=== PATIENT | male | born 1955 | race Caucasian/White ===

== ENCOUNTER 2016-08-25 00:53 | Emergency (ER) | payer OTHER ==
[~2016-08-25] VITALS: Ht 188 cm; Wt 100.0 kg
[2016-08-25 01:06] VITALS: BP 150/85
[2016-08-25 02:28] LABS: BASOPHILS % (AUTO) 0.6 % (0.0-2.0); EOSINOPHILS % (AUTO) 2.2 % (1.0-6.0); HEMATOCRIT 36.1 % (41-53); LYMPHOCYTES % (AUTO) 24.5 % (22.0-44.0); MEAN CORPUSCULAR HGB CONC 33.1 G/dL (31.0-37.0); MEAN CORPUSCULAR VOLUME 91 fL (80-100); MONOCYTES # (AUTO) 0.7 K/uL (0.1-1.0); MONOCYTES % (AUTO) 16.8 % (2.0-9.0); NEUTROPHILS # (AUTO) 2.2 K/uL (1.8-7.7); NEUTROPHILS % (AUTO) 55.9 % (40.0-70.0); PLATELET COUNT (AUTO) 102 K/uL (150-450); RED BLOOD CELL COUNT(AUTO) 3.99 MIL/uL (4.50-5.90); RED CELL DISTRIBUTION WIDTH 14.4 % (11.5-14.5)
[2016-08-25] MEDS ORDERED: FUROSEMIDE 20 MG TABLET PO ONE (02:30)
[2016-08-25 02:32] LABS: GLUCOSE,POINT OF CARE 114 MG/DL (70-110)
[2016-08-25 02:33] LABS: ANION GAP 8 mmol/L (8-16); CALCIUM, TOTAL 8.5 mg/dL (8.8-10.5); CARBON DIOXIDE 27 mmol/L (22-29); CHLORIDE 107 mmol/L (98-107); CREATININE 0.77 mg/dL (0.60-1.30); GLOMERULAR FILTR. RATE CALC > 60 mL/min (>60); POTASSIUM 3.7 mmol/L (3.5-5.1); SODIUM SERUM 142 mmol/L (136-145); UREA NITROGEN, BLOOD 16 mg/dL (7-18)
[2016-08-25] MEDS ORDERED: LABE100T PO (02:35)
[2016-08-25] MEDS ORDERED: FURO20 PO (02:35)
[2016-08-25] MEDS ORDERED: LORA10TA7 PO (02:35)
[2016-08-25] MEDS ORDERED: MORP15 PO (02:35)
[2016-08-25] MEDS ORDERED: OMEP20 PO (02:35)
[2016-08-25] MEDS ORDERED: NAPH10DR OU (02:35)
[2016-08-25] MEDS ORDERED: HYDR50 PO (02:35)
[2016-08-25] MEDS ORDERED: LEVE500T53 PO (02:35)
[2016-08-25] MEDS ORDERED: SALS500T16 PO (02:35)
[2016-08-25] MEDS ORDERED: ASPI81 PO (02:35)
[2016-08-25] MEDS ORDERED: AMLO-512 PO (02:35)
[2016-08-25] MEDS ORDERED: ENAL20 PO (02:35)
[2016-08-25] MEDS ORDERED: PREG75 PO (02:35)
[2016-08-25] MEDS ORDERED: METF500T4 PO (02:35)
[2016-08-25] MEDS ORDERED: LACT30L PO (02:35)
[2016-08-25] MEDS ORDERED: DSS100 PO (02:35)
[2016-08-25 02:40] LABS: ALANINE AMINOTRANSFERASE 71 U/L (12-78); ALBUMIN 3.3 g/dL (3.4-5.0); ASPARTATE AMINOTRANSFERASE 76 U/L (15-37); BILIRUBIN,TOTAL 0.5 mg/dL (0.1-1.0); TOTAL PROTEIN, SERUM 6.4 g/dL (6.4-8.2)
[2016-08-25 02:43] LABS: B-TYPE NATRIURETIC PEPTIDE 11 pg/mL (0-100)
== END 2016-08-25 03:42 | disposition home or self-care (01) ==
LOC: EMS 00:56
DX: R60.0 Localized edema (principal); K74.60 Unspecified cirrhosis of liver; B19.20 Unspecified viral hepatitis C without hepatic coma; E11.9 Type 2 diabetes mellitus without complications; K21.9 Gastro-esophageal reflux disease without esophagitis; E78.00 Pure hypercholesterolemia, unspecified; I10 Essential (primary) hypertension; Z88.5 Allergy status to narcotic agent
CPT/HCPCS: 82962; 93005; 99285